=== PATIENT | male | born 1970 | race Caucasian/White ===

== ENCOUNTER 2021-01-12 13:32 | Emergency (ER) | payer MEDICAID ==
[~2021-01-12] VITALS: Ht 162.6 cm; Wt 86.2 kg
[2021-01-12 13:57] VITALS: BP 157/98
--- NOTE | 2021-01-12 14:01 | NUR ---
PT SENT TO LOBBY
[2021-01-12] MEDS ORDERED: KETOROLAC 30 MG/ML VIAL IM ONE (14:15)
[2021-01-12] MEDS ORDERED: BACITRACIN OINT 500 UNITS/GM PKT TP ONE (14:42)
--- NOTE | 2021-01-12 14:44 | NUR ---
TDAP CONSENT SIGNED
--- NOTE | 2021-01-12 14:54 | NUR ---
APPLIED DRESSING TO RIGHT FOOT WITHOUT ANY ISSUES
[2021-01-12] MEDS ORDERED: NAPR-54 PO ×2 (14:57→18:21)
[2021-01-12] MEDS ORDERED: CEPH-588 PO ×2 (14:57→18:21)
[2021-01-12 15:04] VITALS: BP 142/89
--- NOTE | 2021-01-12 15:05 | NUR ---
Patient discharged with v/s stable. Written and verbal after care instructions given and explained. Patient verbalized understanding. Ambulatory with steady gait. All questions addressed prior to discharge. Advised to follow up with PMD.
[2021-01-16] MEDS ORDERED: BACITRACIN OINT 500 UNITS/GM PKT TP ONE (15:25)
--- NOTE | 2021-01-16 15:29 | NUR ---
LATE ENTRY. ADMINISTERED BACITRACIN OINTMENT ON 01/12/21 AT 1445, RECEIVED VERBAL ORDER FOR MEDICATION BY ANETA NIETO. NO ADVERSE REACTION NOTED.
[2021-01-17] MEDS ORDERED: VANCOMYCIN 1,000 MG VIAL ONE (20:03)
[2021-01-17] MEDS ORDERED: CLINDAMYCIN 600 MG/4 ML VIAL ONE (22:28)
[2021-01-18] MEDS ORDERED: PIPERACILLIN/TAZOBACTAM 3.375 GM VIAL IV ONE ×2 (01:55→07:29)
[2021-01-18] MEDS ORDERED: CLINDAMYCIN 600 MG/4 ML VIAL ONE (07:28)
== END 2021-01-12 15:05 | disposition home or self-care (01) ==
LOC: MED 13:32
DX: S91.311A Laceration without foreign body, right foot, initial encounter (principal); L03.115 Cellulitis of right lower limb; Z79.899 Other long term (current) drug therapy; W45.8XXA Other foreign body or object entering through skin, initial encounter; Y93.89 Activity, other specified; Y92.89 Other specified places as the place of occurrence of the external cause; Y99.8 Other external cause status
CPT/HCPCS: 73630; 90471; 90715; 96372; 99284; J1885

== ENCOUNTER 2021-01-17 16:46 | Inpatient (IN) | payer MEDICAID, SELFPAY ==
[~2021-01-17] VITALS: Ht 160 cm; Wt 86.2 kg
[~2021-01-17 16:46] MED LIST: CEPH-588 PO; NAPR-54 PO
[2021-01-17 16:58] VITALS: BP 170/116
--- NOTE | 2021-01-17 17:05 | NUR ---
Pt w/c assisted to bed 06.
--- NOTE | 2021-01-17 17:10 | NUR ---
Note undone in EDM - 01/17/21 at 1839 by [facility] 50 YO MALE BIBS C/O R FOOT LACERATION THAT IS WORSE. PATIENT WAS SEEN HERE 2 DAYS AGO, AND PATIENT STATES THAT THE LACERATION IS WORSE. THE SITE IS RED, SWOLLEN, AND DRAINING CLEAR FLUID. PAIN 10/10 AT REST TO RIGHT FOOT. THE LACERATION HAPPENED ON TUESDAY. PATIENT DENIES FEVER, CHILLS, N/V/D. PATIENT IS A&OX4, RR EVEN AND UNLABORED. PMH: DENIES NKDA
--- NOTE | 2021-01-17 17:10 | NUR ---
50 YO MALE BIBS C/O R FOOT LACERATION THAT IS WORSE. PATIENT WAS SEEN HERE TUESDAY THE , AND RETURNED TODAY FOR A RE-EVALUATION. PATIENT STATES THAT THE LACERATION IS WORSE. THE SITE IS RED, SWOLLEN, AND DRAINING CLEAR FLUID. PAIN 10/10 AT REST TO RIGHT FOOT. PT STATES THE LACERATION HAPPENED ON TUESDAY THE . PATIENT DENIES FEVER, CHILLS, N/V/D. PATIENT IS A&OX4, RR EVEN AND UNLABORED. PMH: DENIES NKDA
--- NOTE | 2021-01-17 17:40 | NUR ---
BLOOD SAMPLES COLLECTED AT BEDSIDE AND GIVEN TO SUPERVISOR AIRCRAFT MAINTENANCE.
--- NOTE | 2021-01-17 17:55 | NUR ---
RAD AT BEDSIDE FOR XRAY
[2021-01-17 18:09] LABS: BASOPHILS # (AUTO) 0.1 K/uL (0.00-0.22); BASOPHILS % (AUTO) 1.2 % (0.0-2.0); EOSINOPHILS # (AUTO) 0.4 K/uL (0-0.4); EOSINOPHILS % (AUTO) 3.8 % (0.0-4.0); HEMATOCRIT 45.3 % (36-52); HEMOGLOBIN 15.8 g/dL (12.0-18.0); LYMPHOCYTES # (AUTO) 2.6 K/uL (2.0-11.5); LYMPHOCYTES % (AUTO) 24.3 % (20.5-51.1); MEAN CORPUSCULAR HEMOGLOBIN 31 pg (27-31); MEAN CORPUSCULAR HGB CONC 35 g/dL (33-37); MEAN CORPUSCULAR VOLUME 89.5 fL (80-94); MONOCYTES % (AUTO) 9.1 % (1.7-9.3); NEUTROPHILS # (AUTO) 6.7 K/uL (1.8-7.7); NEUTROPHILS % (AUTO) 61.6 % (42.2-75.2); PLATELET COUNT (AUTO) 308 K/uL (140-450); RED BLOOD CELL COUNT(AUTO) 5.06 MIL/uL (4.20-6.10); RED CELL DISTRIBUTION WIDTH 13.9 % (11.6-13.7); WHITE BLOOD COUNT (AUTO) 10.8 K/uL (4.8-10.8)
[2021-01-17 18:38] LABS: ALBUMIN 3.6 g/dL (3.4-5.0); ANION GAP 11.8 (8-16); CARBON DIOXIDE 26.6 mmol/L (21-32); CREATININE 0.9 mg/dL (0.6-1.3); POTASSIUM 4.4 mmol/L (3.5-5.1); TOTAL BILIRUBIN 0.4 mg/dL (0.0-1.0)
--- NOTE | 2021-01-17 18:55 | NUR ---
TIM RODRIGUEZ CALLED FOR UPDATE ON PATIENT, IS REQUESTING TO BE NOTIFIED WHEN PATIENT IS DISCHARGED OR IF THERE IS ANY CHANGE IN STATUS. [phone] OR OF PATIENT LUCIANO [phone].
[2021-01-17] MEDS ORDERED: PIPERACILLIN/TAZOBACTAM 3.375 GM in DEXTROSE 5% 50 ML IV ONE (19:05)
[2021-01-17] MEDS ORDERED: VANCOMYCIN 1,000 MG in DEXTROSE 5% 250 ML IV ONE (19:05)
--- NOTE | 2021-01-17 19:21 | NUR ---
RECEIVED REPORT FROM RYAN ERNST, TRANSFER OF CARE AT THIS TIME
[2021-01-17] MEDS ORDERED: PIPERACILLIN/TAZOBACTAM 3.375 GM VIAL IV ONE (19:23)
--- NOTE | 2021-01-17 19:30 | NUR ---
PT RESTING IN BED WITH EVEN AND UNLABORED RESPIRATIONS. PT A/O X4, GCS 15. WILL CONTINUE TO MONITOR.
--- NOTE | 2021-01-17 19:47 | NUR ---
Jasson tang collected, walked to lab and handed to KLEVER Hernandez.
--- NOTE | 2021-01-17 20:30 | NUR ---
WOUND PHOTO TAKEN OF R FOOT, SIGNED BY DR BUENROSTRO AND PLACED IN CHART
[2021-01-17] MEDS ORDERED: ONDANSETRON 4 MG/2 ML VIAL IM/IVP PRN (21:45)
[2021-01-17] MEDS ORDERED: HYDROcodone/APAP 7.5/325 MG 1 TAB PO PRN (21:45)
[2021-01-17] MEDS ORDERED: ZOLPIDEM 5 MG TAB PO PRN (21:45)
[2021-01-17] MEDS ORDERED: POTASSIUM CHLORIDE 10 MEQ TABER PO PRN (21:45)
[2021-01-17] MEDS ORDERED: guaiFENesin DM 200/20 MG-10 ML 10 ML UDC PO PRN (21:45)
[2021-01-17] MEDS ORDERED: DOCUSATE SODIUM 100 MG GELCAP PO PRN (21:45)
[2021-01-17] MEDS ORDERED: ACETAMINOPHEN 325 MG TAB PO PRN (21:45)
[2021-01-17] MEDS: NACL 0.9% 1,000 ML IV SCH (22:09)
[2021-01-17 22:36] LABS: CHOL/HDL RATIO 3.3 (1-4.5); FREE T4 (FREE THYROXINE) 1.12 ng/dL (0.76-1.46); MAGNESIUM 1.9 mg/dL (1.8-2.4); PHOSPHORUS 2.7 mg/dL (2.5-4.9); THYROID STIMULATING HORMONE 1.81 uIU/mL (0.34-3.74)
[2021-01-17] MEDS: CLINDAMYCIN 600 MG in DEXTROSE 5% 50 ML IV SCH (22:47)
--- NOTE | 2021-01-17 22:47 | NUR ---
PT RESTING IN BED WITH EVEN AND UNLABORED RESPIRATIONS. DENIES PAIN. VSS, FLUIDS INFUSING. WILL CONTINUE TO MONITOR.
[2021-01-17 22:53] LABS: PROTHROMBIN TIME 10.9 secs (10.8-13.4)
--- NOTE | 2021-01-18 00:59 | NUR ---
PT SLEEPING IN BED WITH EVEN AND UNLABORED RESPIRATIONS. FLUIDS RUNNING. VSS. WILL CONTINUE TO MONITOR.
[2021-01-18] MEDS: PIPERACILLIN/TAZOBACTAM 3.375 GM in DEXTROSE 5% 50 ML IV SCH ×4 (02:05→17:16)
--- NOTE | 2021-01-18 02:10 | NUR ---
REPORT GIVEN TO BREE ERNST, TRANSFER OF CARE AT THIS TIME.
[2021-01-18 07:04] LABS: ANION GAP 12.6 (8-16); CARBON DIOXIDE 25.9 mmol/L (21-32); CREATININE 0.9 mg/dL (0.6-1.3); POTASSIUM 4.5 mmol/L (3.5-5.1)
--- NOTE | 2021-01-18 07:10 | NUR ---
REPORT AND CONTINUATION OF CARE RECEIVED FROM KLEVER LOPEZ.
[2021-01-18 07:15] LABS: BASOPHILS % (AUTO) 0.4 % (0.0-2.0); EOSINOPHILS # (AUTO) 0.4 K/uL (0-0.4); EOSINOPHILS % (AUTO) 4.6 % (0.0-4.0); HEMATOCRIT 43.3 % (36-52); HEMOGLOBIN 14.9 g/dL (12.0-18.0); LYMPHOCYTES # (AUTO) 1.9 K/uL (2.0-11.5); LYMPHOCYTES % (AUTO) 22.8 % (20.5-51.1); MEAN CORPUSCULAR HEMOGLOBIN 31 pg (27-31); MEAN CORPUSCULAR HGB CONC 34 g/dL (33-37); MEAN CORPUSCULAR VOLUME 90.7 fL (80-94); MONOCYTES # (AUTO) 0.6 K/uL (0.8-1.0); MONOCYTES % (AUTO) 7.9 % (1.7-9.3); NEUTROPHILS # (AUTO) 5.3 K/uL (1.8-7.7); NEUTROPHILS % (AUTO) 64.3 % (42.2-75.2); PLATELET COUNT (AUTO) 312 K/uL (140-450); RED BLOOD CELL COUNT(AUTO) 4.78 MIL/uL (4.20-6.10); RED CELL DISTRIBUTION WIDTH 13.6 % (11.6-13.7); WHITE BLOOD COUNT (AUTO) 8.2 K/uL (4.8-10.8)
[2021-01-18] MEDS: CLINDAMYCIN 600 MG in DEXTROSE 5% 50 ML IV SCH ×4 (07:30→23:32)
--- NOTE | 2021-01-18 07:49 | NUR ---
REPORT GIVEN TO KLEVER CRUZ MEDSUR FOR ADMISSION TO BED 128A.
[2021-01-18] MEDS: NACL 0.9% 1,000 ML IV SCH ×2 (07:50→17:21)
--- NOTE | 2021-01-18 07:50 | NUR ---
PT ARRIVED TO UNIT VIA WHEELCHAIR. PT AMBULATED TO THE BED WITH STEADY GAIT. PT IS AWAKE AND ALERT. A&OX4. ISRAELI SPEAKING. ON RA WITH BREATHING UNLABORED. SKIN IS WARM AND DRY. RIGHT FOOT CELLULITIS ROQUE. PICTURE WAS TAKEN AND PLACED IN CHART. PT IS STABLE AT THIS TIME.
[2021-01-18 08:00] VITALS: BP 147/91
--- NOTE | 2021-01-18 08:00 | NUR ---
Patient will be admitted to care of DR RODRIGUEZ. Admited to MED SURG. Will go to room 128A. Belongings list completed. Report to KLEVER CRUZ.
[2021-01-18] MEDS ORDERED: PIPERACILLIN/TAZOBACTAM 3.375 GM VIAL IV ONE (09:04)
[2021-01-18] MEDS: PANTOPRAZOLE 40 MG TABEC PO SCH (09:10)
--- NOTE | 2021-01-18 09:58 | NUR ---
WIRE DRAWING MACHINE OPERATOR PHONE USED FOR ADMISSION ASSESSMENT. NUMBER [id number].
--- NOTE | 2021-01-18 11:30 | NUR ---
WOUND WAS CLEANSED WITH NS AND PATTED DRY. WOUND WAS LEFT OPEN TO AIR. PT DENIES PAIN WITH THE WOUND. A&OX4. PT IS ABLE TO AMBULATE INDEPENDENTLY. WILL MONITOR.
--- NOTE | 2021-01-18 13:00 | NUR ---
IS AT BEDSIDE WITH PT. PT APPEARS TO BE STABLE AT THIS TIME. DENIES PAIN ON THE RIGHT FOOT. PT AMBULATED TO THE RESTROOM INDEPENDENTLY. WILL CONTINUE TO MONITOR.
--- NOTE | 2021-01-18 14:46 | NUR ---
PT IS SITTING UP IN BED, WATCHING TV. IS AT BEDSIDE. BREATHING IS UNLABORED ON RA. NO PAIN NOTED. IV IS PATENT AND INFUSING ORDERED. PT IS STABLE AT THIS TIME.
[2021-01-18 16:00] VITALS: BP 128/81
--- NOTE | 2021-01-18 16:45 | NUR ---
PT IS AWAKE IN BED. IS AT BEDSIDE. NO DISTRESS NOTED. PT DENIES PAIN. DRESSING INTACT ON THE RIGHT FOOT.
--- NOTE | 2021-01-18 18:30 | NUR ---
IS AT BEDSIDE. PT IS TALKING WITH . PT IS STABLE. PT TOOK OFF BANDAGE THAT WAS PLACED ON FOOT. NO DRAINAGE NOTED. WOUND IS CLEAN. WILL MONITOR.
--- NOTE | 2021-01-18 19:20 | NUR ---
ENDORSED PT TO MAIL EXAMINER NURSE FOR CONTINUITY OF CARE. PT IS STABLE AT THIS TIME. PLAN OF CARE DISCUSSED.
--- NOTE | 2021-01-18 20:00 | NUR ---
1999 PATIENT RECEIVED IN BED ALERT AND COHERENT,
--- NOTE | 2021-01-18 20:00 | NUR ---
1999 PATIENT RECEIVED IN BED ALERT AND COHERENT,
--- NOTE | 2021-01-18 23:30 | NUR ---
URINE WAS COLLECTED FOR DRUG TEST AND U/A TEST.
[2021-01-19] VITALS: BP 119/76
--- NOTE | 2021-01-19 | NUR ---
IV ATB CLEOCIN WAS ADMINISTERED, NO ASE AT THIS TIME.
[2021-01-19] MEDS: PIPERACILLIN/TAZOBACTAM 3.375 GM in DEXTROSE 5% 50 ML IV SCH ×4 (00:18→18:31)
--- NOTE | 2021-01-19 00:30 | NUR ---
IV ATB ZOSYN WAS ADMINISTERED VIA PIGGY BACK, TOLERATED WELL, NO ASE AT THIS TIME.
--- NOTE | 2021-01-19 01:48 | NUR ---
PATIENT WAS ASLEEP AT THIS TIME
[2021-01-19 02:28] LABS: APPEARANCE,URINE CLEAR (CLEAR); BILIRUBIN,URINE NEGATIVE (NEGATIVE); BLOOD, URINE NEGATIVE (NEGATIVE); COLOR,URINE YELLOW (YELLOW); LEUKOCYTE ESTERASE ,URINE NEGATIVE (NEGATIVE); NITRITE, URINE NEGATIVE (NEGATIVE); UGLUCOSE NEGATIVE (NEGATIVE)
[2021-01-19 02:40] LABS: BARBITURATE, URINE NEGATIVE ng/ml (NEG <=200); BENZODIAZEPINE, URINE NEGATIVE ng/mL (NEG <=200); CANNABINOID, URINE NEGATIVE ng/mL (NEG <=50); COCAINE, URINE NEGATIVE ng/mL (NEG <=300); OPIATE, URINE NEGATIVE ng/mL (NEG <=2000); PHENCYCLIDINE SCREEN,URINE NEGATIVE ng/mL (NEG <=25)
[2021-01-19] MEDS: NACL 0.9% 1,000 ML IV SCH ×3 (03:45→23:45)
[2021-01-19] MEDS: CLINDAMYCIN 600 MG in DEXTROSE 5% 50 ML IV SCH ×3 (05:30→18:31)
[2021-01-19 05:38] LABS: BASOPHILS # (AUTO) 0.1 K/uL (0.00-0.22); BASOPHILS % (AUTO) 0.6 % (0.0-2.0); EOSINOPHILS # (AUTO) 0.5 K/uL (0-0.4); EOSINOPHILS % (AUTO) 5.7 % (0.0-4.0); HEMATOCRIT 42.3 % (36-52); HEMOGLOBIN 14.5 g/dL (12.0-18.0); LYMPHOCYTES # (AUTO) 2.5 K/uL (2.0-11.5); LYMPHOCYTES % (AUTO) 26.3 % (20.5-51.1); MEAN CORPUSCULAR HEMOGLOBIN 31 pg (27-31); MEAN CORPUSCULAR HGB CONC 34 g/dL (33-37); MEAN CORPUSCULAR VOLUME 90.3 fL (80-94); MONOCYTES # (AUTO) 0.8 K/uL (0.8-1.0); MONOCYTES % (AUTO) 8.2 % (1.7-9.3); NEUTROPHILS # (AUTO) 5.6 K/uL (1.8-7.7); NEUTROPHILS % (AUTO) 59.2 % (42.2-75.2); PLATELET COUNT (AUTO) 317 K/uL (140-450); RED BLOOD CELL COUNT(AUTO) 4.69 MIL/uL (4.20-6.10); RED CELL DISTRIBUTION WIDTH 13.8 % (11.6-13.7); WHITE BLOOD COUNT (AUTO) 9.4 K/uL (4.8-10.8)
[2021-01-19 06:20] LABS: T4 (THYROXINE) 8.8 ug/dL (4.5-12.0)
[2021-01-19 06:51] LABS: ANION GAP 14.7 (8-16); CARBON DIOXIDE 24.6 mmol/L (21-32); POTASSIUM 4.3 mmol/L (3.5-5.1)
--- NOTE | 2021-01-19 07:20 | NUR ---
ALL REPORTS WERE GIVEN TO INCOMING RN, TRANSFER OF CARE ENDORSED.
--- NOTE | 2021-01-19 07:30 | NUR ---
RECEIVED BEDSIDE REPORT FROM TELECOM NETWORK MANAGER NURSE MAURILIO RN, PT AWAKE ALERT, ABLE TO LET NEEDS KNOWN, AAOX4, IV TO L FA 20G PATENT INTACT, INFUSING NS@ 100ML/HR, INFUSING WELL, PT ON ROOM AIR, NO SOB. WOUND TO RIGHT FOOT, DRESSING CLEAN DRY AND INTACT, INITIAL ASSESSMENT DONE, ALL SAFETY PRECAUTION MET, CALL LIGHT WITHIN REACH, WILL CONTINUE TO MONITOR.
[2021-01-19 08:00] VITALS: BP 122/82
[2021-01-19] MEDS: PANTOPRAZOLE 40 MG TABEC PO SCH (08:17)
--- NOTE | 2021-01-19 09:15 | NUR ---
PATIENT HAS BEEN SCREENED AND CATEGORIZED HIGH NUTRITION RISK. PATIENT WILL BE SEEN WITHIN 1-2 DAYS OF ADMISSION. 01/19/[address]
--- NOTE | 2021-01-19 10:00 | NUR ---
PATIENT SIGNED CONSENT, ALL QUESTIONS ANSWERED, PER RISK MANAGEMENT DIRECTOR RESIDENT DR. OCHOA SHE ALREADY TALKED TO PT AND PT STATED UNDERSTANDING. PT STATED NO MORE QUESTIONS, UNDERSTANDING THE PROCEDURE.
--- NOTE | 2021-01-19 11:37 | NUR ---
WOUND CARE CONSULT NOT DONE, MEET DR. OCHOA AT BED SIDE. DR. OCHOA HAS EXAM AND TREATED THE WOUND TO RIGHT HALLUX, DRESSING DRY CLEAN. PER DR. OCHOA WILL PERFORM SKIN JES PROCEDURE TOMORROW, NO DRESSING CHANGE 7 DAYS AND FOLLOW UP WITH PODIATRY FOR FIRST DRESSING CHANGE. PT. AND VERBALIZES UNDERSTANDING.
--- NOTE | 2021-01-19 13:17 | NUR ---
DUE MEDICATIONS ADMINISTERED, PT TOLERATED WELL, NO DISTRESS NOTED, WILL CONTINUE OT MONITOR.
--- NOTE | 2021-01-19 14:20 | NUR ---
01/19/21 RD INITIAL ASSESSMENT COMPLETED PLEASE REFER TO NUTRITION ASSESSMENT UNDER CARE ACTIVITY FOR ESTIMATED NUTRITIONAL NEEDS. 1. CONTINUE CARDIAC DIET TOLERATED 2. RECOMMEND ENSURE ONCE DAILY TO PROMOTE WOUND HEALING 3. RD TO FOLLOW-UP 5-7 DAYS, LOW RISK JUAN CARLOS KENT, RD
[2021-01-19 16:00] VITALS: BP 134/83
--- NOTE | 2021-01-19 18:30 | NUR ---
DUE MEDICATIONS ADMINISTERED, PT TOLERATED WELL, NO DISTRESS NOTED, WILL CONTINUE TO MONITOR.
--- NOTE | 2021-01-19 19:30 | NUR ---
ENDORSED PT TO AUTOMOTIVE STARTER REPAIRER NURSE MAURILIO ERNST, FOR CONTINUOUS OF CARE
--- NOTE | 2021-01-19 20:00 | NUR ---
ALL DUE MEDS WERE GIVEN TOLERATED WELL.
--- NOTE | 2021-01-19 21:00 | NUR ---
V/S WAS WITHIN NORMAL LIMIT.
--- NOTE | 2021-01-19 22:00 | NUR ---
PATIENT WAS ASLEEP
[2021-01-20] VITALS: BP 121/80
--- NOTE | 2021-01-20 04:00 | NUR ---
V/S WNL ASLEEP STILL.
[2021-01-20] MEDS: NACL 0.9% 1,000 ML IV SCH ×2 (04:15→06:00)
[2021-01-20] MEDS: PIPERACILLIN/TAZOBACTAM 3.375 GM in DEXTROSE 5% 50 ML IV SCH ×6 (05:10→23:15)
[2021-01-20 05:55] LABS: ANION GAP 11.5 (8-16); CARBON DIOXIDE 27.7 mmol/L (21-32); CREATININE 0.9 mg/dL (0.6-1.3); POTASSIUM 4.2 mmol/L (3.5-5.1)
[2021-01-20] MEDS: CLINDAMYCIN 600 MG in DEXTROSE 5% 50 ML IV SCH ×6 (06:00→23:15)
[2021-01-20 06:18] LABS: BASOPHILS # (AUTO) 0.1 K/uL (0.00-0.22); BASOPHILS % (AUTO) 0.8 % (0.0-2.0); EOSINOPHILS # (AUTO) 0.6 K/uL (0-0.4); EOSINOPHILS % (AUTO) 6.7 % (0.0-4.0); HEMATOCRIT 41.8 % (36-52); HEMOGLOBIN 14.4 g/dL (12.0-18.0); LYMPHOCYTES # (AUTO) 2.3 K/uL (2.0-11.5); LYMPHOCYTES % (AUTO) 26.4 % (20.5-51.1); MEAN CORPUSCULAR HEMOGLOBIN 31 pg (27-31); MEAN CORPUSCULAR HGB CONC 34 g/dL (33-37); MEAN CORPUSCULAR VOLUME 89.5 fL (80-94); MONOCYTES # (AUTO) 0.8 K/uL (0.8-1.0); MONOCYTES % (AUTO) 9.1 % (1.7-9.3); NEUTROPHILS # (AUTO) 4.9 K/uL (1.8-7.7); PLATELET COUNT (AUTO) 302 K/uL (140-450); RED BLOOD CELL COUNT(AUTO) 4.67 MIL/uL (4.20-6.10); RED CELL DISTRIBUTION WIDTH 13.7 % (11.6-13.7); WHITE BLOOD COUNT (AUTO) 8.6 K/uL (4.8-10.8)
--- NOTE | 2021-01-20 07:15 | NUR ---
RECEIVED BEDSIDE REPORT FROM AUTO BODY REPAIR ESTIMATOR NURSE , PT AWAKE ALERT, ABLE TO LET NEEDS KNOWN, AAOX4, IV TO L FA 20G PATENT INTACT, INFUSING NS@ 100ML/HR, INFUSING WELL, PT ON ROOM AIR, NO SOB. WOUND TO RIGHT FOOT, DRESSING CLEAN DRY AND INTACT, INITIAL ASSESSMENT DONE, ALL SAFETY PRECAUTION MET, CALL LIGHT WITHIN REACH, WILL CONTINUE TO MONITOR.
[2021-01-20 07:30] VITALS: BP 129/74
--- NOTE | 2021-01-20 07:39 | NUR ---
ALL REPORTS WERE GIVEN , TRANSFER OF CARE ENDORSED.
[2021-01-20] MEDS ORDERED: BUPIVACAINE-MPF 0.25% 30 ML VIAL INJ ONE (07:45)
[2021-01-20] MEDS ORDERED: LIDOCAINE 1% 500 MG/50 ML VIAL ONE (07:45)
--- NOTE | 2021-01-20 07:55 | NUR ---
PT GOT TAKEN BY OR NURSES FOR SCHEDULED PROCEDURE
[2021-01-20] MEDS ORDERED: MIDAZOLAM 2 MG/2 ML VIAL ONE ×3 (08:05→08:26)
[2021-01-20] MEDS ORDERED: fentaNYL citrate 0.05 MG/ML VIAL ONE ×2 (08:05→08:26)
[2021-01-20] MEDS ORDERED: PROPOFOL 200 MG/20 ML VIAL IV ONE ×3 (08:26→08:52)
[2021-01-20] MEDS ORDERED: ONDANSETRON 4 MG/2 ML VIAL ONE (08:26)
[2021-01-20] MEDS ORDERED: METOCLOPRAMIDE 10 MG/2 ML INJ VIAL ONE ×2 (08:26→08:52)
[2021-01-20] MEDS ORDERED: LIDOCAINE 2% 100 MG/5 ML SYR IVP ONE ×2 (08:26→08:53)
[2021-01-20] MEDS ORDERED: DEXAMETHASONE 4 MG/ML VIAL ONE ×3 (08:26→08:52)
[2021-01-20] MEDS ORDERED: KETOROLAC 30 MG/ML VIAL ONE ×2 (08:26→09:18)
[2021-01-20] MEDS ORDERED: SEVOFLURANE 250 ML BTL INH ONE (08:26)
[2021-01-20] MEDS: PANTOPRAZOLE 40 MG TABEC PO SCH (09:00)
--- NOTE | 2021-01-20 09:05 | NUR ---
PT STILL IN SURGERY ROOM.
[2021-01-20] MEDS: LACTATED RINGERS 1,000 ML IV SCH ×2 (09:10→17:30)
[2021-01-20] MEDS ORDERED: ONDANSETRON 4 MG/2 ML VIAL IVP PRN (09:10)
[2021-01-20] MEDS ORDERED: BLOOD GLUCOSE MONITORING 1 DEV DEV FS ONE (09:10)
[2021-01-20] MEDS ORDERED: HYDROmorphone 1 MG/ML AMP IVP PRN (09:10)
[2021-01-20] MEDS ORDERED: MEPERIDINE 25 MG/ML SYR IVP PRN (09:10)
[2021-01-20] MEDS ORDERED: BACITRACIN 50000 UNITS/1 VIAL ONE (09:11)
[2021-01-20] MEDS ORDERED: NEOMYCIN/POLYMYXIN/BACITRACIN OIN 15 GM TUBE TP ONE (09:13)
--- NOTE | 2021-01-20 10:30 | NUR ---
PT CAME BACK FROM OR AFTER I AND D RIGHT FOOT, GRAFT AND BONE BIOPSY . PT VITAL SIGNS TAKEN, 108/70 HEART RATE 66 SAT 95% ROOM AIR TEMP. 98.4. NEXT TO PT BED, PT DENIES PAIN. WILL CONTINUE TO MONITOR. ALL SAFETY MEASURES ON PLACE, CALLS LIGHT WITHIN REACH
--- NOTE | 2021-01-20 12:40 | NUR ---
PT STABLE NO COMPLAINS, NEXT TO BED SIDE, ALL SAFETY MEASURES ON PLACE CALLS LIGHT WITHIN REACH
--- NOTE | 2021-01-20 14:30 | NUR ---
PT STABLE NO COMPLAINS, LAYING ON BED , ALL SAFETY MEASURES ON PLACE CALLS LIGHT WITHIN REACH
[2021-01-20 16:00] VITALS: BP 131/73
--- NOTE | 2021-01-20 16:45 | NUR ---
PT STABLE NO COMPLAINS, SITTING ON BED, ALL SAFETY MEASURES ON PLACE CALLS LIGHT WITHIN REACH
--- NOTE | 2021-01-20 18:15 | NUR ---
PT STABLE NO COMPLAINS, NEXT TO BED SIDE, ALL SAFETY MEASURES ON PLACE CALLS LIGHT WITHIN REACH
--- NOTE | 2021-01-20 19:15 | NUR ---
FULL BEDSIDE REPORT GIVEN TO MOUNTER SAXOPHONES NURSE
[2021-01-21] VITALS: BP 131/73
--- NOTE | 2021-01-21 02:51 | NUR ---
PATIENT AWAKE ALERT RESTING WELL IN BED NO C/O. ON ROOM AIR SAT 92%. TEMP 99.9 LUNGS DIMINISH NO COUGH IV SITE LEAKING UPPER LEFT ARM STARTED NEW SITE 22 GA LEFT HAND 22GA. NS INFUSING AT 100 HOUR. PATIENT WITH NO C/O OF PAIN RIGHT FOOT WITH LYNDSAY WRAP APPEARS TO BE SWOLLEN. BUT NO C/O OF PAIN.
[2021-01-21] MEDS: NACL 0.9% 1,000 ML IV SCH (04:20)
[2021-01-21 06:13] LABS: BASOPHILS # (AUTO) 0.1 K/uL (0.00-0.22); BASOPHILS % (AUTO) 0.4 % (0.0-2.0); EOSINOPHILS # (AUTO) 0.1 K/uL (0-0.4); HEMATOCRIT 40.2 % (36-52); HEMOGLOBIN 13.6 g/dL (12.0-18.0); LYMPHOCYTES % (AUTO) 21.8 % (20.5-51.1); MEAN CORPUSCULAR HEMOGLOBIN 31 pg (27-31); MEAN CORPUSCULAR HGB CONC 34 g/dL (33-37); MEAN CORPUSCULAR VOLUME 90.8 fL (80-94); MONOCYTES % (AUTO) 7.5 % (1.7-9.3); NEUTROPHILS # (AUTO) 9.5 K/uL (1.8-7.7); NEUTROPHILS % (AUTO) 69.3 % (42.2-75.2); PLATELET COUNT (AUTO) 347 K/uL (140-450); RED BLOOD CELL COUNT(AUTO) 4.43 MIL/uL (4.20-6.10); RED CELL DISTRIBUTION WIDTH 13.7 % (11.6-13.7); WHITE BLOOD COUNT (AUTO) 13.8 K/uL (4.8-10.8)
[2021-01-21 06:37] LABS: ANION GAP 12.9 (8-16); CARBON DIOXIDE 23.9 mmol/L (21-32); POTASSIUM 3.8 mmol/L (3.5-5.1)
[2021-01-21] MEDS: CLINDAMYCIN 600 MG in DEXTROSE 5% 50 ML IV SCH ×2 (06:54→13:05)
[2021-01-21] MEDS: PIPERACILLIN/TAZOBACTAM 3.375 GM in DEXTROSE 5% 50 ML IV SCH ×2 (06:55→13:04)
--- NOTE | 2021-01-21 07:15 | NUR ---
RECEIVED BEDSIDE REPORT FROM COMMUNICATION ELECTRONIC TECHNICIAN NURSE FOR CONTINUITY OF CARE. PT IS AWAKE AND ALERT. A&OX4. ON RA WITH BREATHING UNLABORED. PT IS AMBULATORY INDEPENDENTLY. SKIN IS WARM AND DRY. WOUND ON THE RIGHT FOOT WITH DRESSING INTACT. IV IS IN THE LEFT HAND 22 GAUGE RUNNING NS AT 100 ML/HR. PT IS STABLE. PLAN OF CARE DISCUSSED.
[2021-01-21 08:00] VITALS: BP 127/94
[2021-01-21] MEDS: PANTOPRAZOLE 40 MG TABEC PO SCH (08:35)
[2021-01-21] MEDS ORDERED: LEVO750T51 PO (13:19)
[2021-01-21 14:08] LABS: BASOPHILS # (AUTO) 0.1 K/uL (0.00-0.22); BASOPHILS % (AUTO) 0.7 % (0.0-2.0); EOSINOPHILS # (AUTO) 0.5 K/uL (0-0.4); EOSINOPHILS % (AUTO) 4.7 % (0.0-4.0); HEMOGLOBIN 12.8 g/dL (12.0-18.0); LYMPHOCYTES # (AUTO) 3.3 K/uL (2.0-11.5); LYMPHOCYTES % (AUTO) 31.3 % (20.5-51.1); MEAN CORPUSCULAR HEMOGLOBIN 31 pg (27-31); MEAN CORPUSCULAR HGB CONC 34 g/dL (33-37); MEAN CORPUSCULAR VOLUME 91.6 fL (80-94); MONOCYTES # (AUTO) 0.8 K/uL (0.8-1.0); MONOCYTES % (AUTO) 7.1 % (1.7-9.3); NEUTROPHILS # (AUTO) 5.9 K/uL (1.8-7.7); NEUTROPHILS % (AUTO) 56.2 % (42.2-75.2); PLATELET COUNT (AUTO) 302 K/uL (140-450); RED BLOOD CELL COUNT(AUTO) 4.15 MIL/uL (4.20-6.10); RED CELL DISTRIBUTION WIDTH 13.4 % (11.6-13.7); WHITE BLOOD COUNT (AUTO) 10.6 K/uL (4.8-10.8)
--- NOTE | 2021-01-21 15:03 | NUR ---
MESSAGED DR. BHATT TO REPORT THE WBC FINDINGS. WBC IS 10.6 TODAY, DOWNTRENDING FROM YESTERDAY. ASKED DOCTOR IF HE WOULD LIKE THE PT TO BE DISCHARGED NOW ORDERED. WILL WAIT FOR RESPONSE.
[2021-01-21 16:29] VITALS: BP 124/94
== END 2021-01-21 17:30 | disposition home or self-care (01) | DRG 710 ==
LOC: MED 16:46 → MTU 19:44 → MED 19:44 → MMU 01-18 06:15
PROVIDERS: ADMIT Family Medicine; ATTEND Family Medicine
PROC: 0QU Lower Bones, Supplement (ICD-10-PCS; 2021-01-20)
PROC: 0QBQ0ZZ Excision of Right Toe Phalanx, Open Approach (ICD-10-PCS; principal; 2021-01-20 08:00)
DX: A41.9 Sepsis, unspecified organism (principal); L03.115 Cellulitis of right lower limb; L97.519 Non-pressure chronic ulcer of other part of right foot with unspecified severity; L02.611 Cutaneous abscess of right foot; Z20.822 Contact with and (suspected) exposure to COVID-19; L03.031 Cellulitis of right toe; Z79.899 Other long term (current) drug therapy
CPT/HCPCS: 36415; 71045; 73630; 80048; 80053; 80305; 81003; 82150; 83036; 83690; 83735; 83880; 84100; 84436; 84439; 84443; 84479; 84484; 85025; 85610; 85651; 85730; 86140; 87040; 87070; 87075; 87081; 87205; 96365; 96366; 96367; 97116; 97530; 99285; J1100; J1885; J2001; J2250; J2405; J2543; J2704; J2765; J3010; J3490; J7060; J7120; Q0092

== ENCOUNTER 2022-12-19 10:14 | Emergency (ER) | payer BC, MEDICAID ==
[~2022-12-19] VITALS: Ht 160 cm; Wt 81.6 kg
[~2022-12-19 10:14] MED LIST changes: -CEPH-588 PO; +LEVO750T75 PO
[2022-12-19 10:21] VITALS: BP 141/84; PULSE 62; RESP 16; TEMP 97.4; O2SAT 97
[2022-12-19] MEDS ORDERED: NACL 0.9% 1,000 ML IV ONE (10:40)
[2022-12-19] MEDS ORDERED: ONDANSETRON 4 MG/2 ML VIAL IVP ONE (10:40)
[2022-12-19] MEDS ORDERED: MORPHINE SULFATE 4 MG/ML SYR IVP ONE (10:40)
[2022-12-19 10:46] LABS: APPEARANCE,URINE CLEAR (CLEAR); BILIRUBIN,URINE NEGATIVE (NEGATIVE); BLOOD, URINE 1+ (NEGATIVE); COLOR,URINE YELLOW (YELLOW); LEUKOCYTE ESTERASE ,URINE NEGATIVE (NEGATIVE); NITRITE, URINE NEGATIVE (NEGATIVE); PH,URINE 7.5 (5.0-9.0); PROTEIN,URINE NEGATIVE (NEGATIVE); UGLUCOSE NEGATIVE (NEGATIVE); UROBILINOGEN,URINE 0.2 EU/dL (0.2 - 1)
[2022-12-19 10:58] LABS: BASOPHILS % (AUTO) 0.5 % (0.0-2.0); EOSINOPHILS # (AUTO) 0.3 K/uL (0-0.4); EOSINOPHILS % (AUTO) 4.4 % (0.0-4.0); LYMPHOCYTES # (AUTO) 2.7 K/uL (2.0-11.5); LYMPHOCYTES % (AUTO) 41.9 % (20.5-51.1); MEAN CORPUSCULAR HEMOGLOBIN 31 pg (27-31); MEAN CORPUSCULAR HGB CONC 34 g/dL (33-37); MEAN CORPUSCULAR VOLUME 90.1 fL (80-94); MONOCYTES # (AUTO) 0.6 K/uL (0.8-1.0); MONOCYTES % (AUTO) 8.8 % (1.7-9.3); NEUTROPHILS # (AUTO) 2.8 K/uL (1.8-7.7); NEUTROPHILS % (AUTO) 44.4 % (42.2-75.2); PLATELET COUNT (AUTO) 267 K/uL (140-450); RED BLOOD CELL COUNT(AUTO) 4.55 MIL/uL (4.20-6.10); RED CELL DISTRIBUTION WIDTH 13.3 % (11.6-13.7); WHITE BLOOD COUNT (AUTO) 6.4 K/uL (4.8-10.8)
[2022-12-19 11:04] LABS: BACTERIA,URINE FEW /HPF (None Seen); RBC,URINE 0-5 /HPF (0-5); SQUAMOUS EPITHELIAL CELL,UR 0-3 (FEW) /LPF (0-3 (FEW)); WBC,URINE 0-5 /HPF (0-5)
[2022-12-19 11:10] LABS: ALBUMIN 3.3 g/dL (3.4-5.0); ANION GAP 10.1 (8-16); CALCIUM 9.3 mg/dL (8.5-10.1); CARBON DIOXIDE 31.1 mmol/L (21-32); POTASSIUM 4.2 mmol/L (3.5-5.1); TOTAL BILIRUBIN 0.6 mg/dL (0.0-1.0); TOTAL PROTEIN, SERUM 7.3 g/dL (6.4-8.2)
[2022-12-19] MEDS ORDERED: TAMS0.4C96 PO (13:19)
[2022-12-19] MEDS ORDERED: IBUP-2218 PO (13:19)
[2022-12-19] MEDS ORDERED: HYDR-5191 PO (13:19)
[2022-12-19 13:36] VITALS: BP 132/82; PULSE 72; RESP 20; O2SAT 98
== END 2022-12-19 13:36 | disposition home or self-care (01) ==
LOC: MED 10:14
DX: N20.0 Calculus of kidney (principal); R11.0 Nausea; R50.9 Fever, unspecified; Z79.899 Other long term (current) drug therapy
CPT/HCPCS: 36415; 74177; 80053; 81001; 83690; 85025; 87040; 96361; 96374; 96375; 99285; J2270; J2405; Q9967; J7030